=== PATIENT | male | born 1970 ===

== ENCOUNTER 2021-01-29 08:00 | Outpatient (CLI) | payer OTHER | END 2021-01-29 08:30 | disposition home or self-care (01) | LOC: PPH VACUNA 08:00 | PROVIDERS: ATTEND Emergency Medicine Pediatric Emergency Medicine | DX: Z23 Encounter for immunization (principal) ==

== ENCOUNTER 2021-08-06 08:00 | Outpatient (CLI) | payer OTHER | END 2021-08-06 08:30 | disposition home or self-care (01) | LOC: PPH VACUNA 08:00 | PROVIDERS: ATTEND Emergency Medicine Pediatric Emergency Medicine | DX: Z23 Encounter for immunization (principal) ==

== ENCOUNTER 2022-01-14 13:22 | Outpatient (CLI) | payer OTHER | END 2022-01-14 13:32 | disposition home or self-care (01) | LOC: PPH VACUNA 13:22 | PROVIDERS: ATTEND Emergency Medicine Pediatric Emergency Medicine | DX: Z23 Encounter for immunization (principal) ==